=== PATIENT | male | born 1970 | race Caucasian/White ===

== ENCOUNTER 2021-10-30 13:31 | Emergency (ER) | payer SELFPAY ==
[~2021-10-30] VITALS: Ht 170.2 cm; Wt 94.8 kg
--- NOTE | 2021-10-30 13:40 | NUR ---
DR DELANEY AT BEDSIDE
[2021-10-30 13:45] VITALS: BP 147/94
[2021-10-30] MEDS ORDERED: HYDROCODONE/APAP 5/325MG TABLET PO ONE (14:00)
[2021-10-30] MEDS ORDERED: NAPROXEN 250 MG TABLET PO ONE (14:00)
[2021-10-30] MEDS ORDERED: HYDROCODONE/APAP 5/325MG TABLET ONE (14:46)
[2021-10-30] MEDS ORDERED: NAPROXEN 250 MG TABLET ONE (14:46)
[2021-10-30] MEDS ORDERED: NAPR-1009 PO (14:57)
--- NOTE | 2021-10-30 15:32 | NUR ---
Patient discharged to home in stable condition. Written and verbal after care instructions given. Patient verbalizes understanding of instruction.
== END 2021-10-30 15:32 | disposition home or self-care (01) ==
LOC: ER 13:43
DX: S76.111A Strain of right quadriceps muscle, fascia and tendon, initial encounter (principal); W10.8XXA Fall (on) (from) other stairs and steps, initial encounter; Y93.89 Activity, other specified; Y92.89 Other specified places as the place of occurrence of the external cause; Y99.8 Other external cause status
CPT/HCPCS: 73564-TC